=== PATIENT | female | born 1955 | race Caucasian/White ===

== ENCOUNTER → 2017-02-21 | Outpatient (CLI) | payer OTHER | LOC: FIMAGING 14:45 | DX: Z12.31 Encounter for screening mammogram for malignant neoplasm of breast (principal) | CPT/HCPCS: G0202 ==

== ENCOUNTER 2018-02-13 09:31 | Emergency (ER) | payer OTHER ==
[2018-02-13 09:35] VITALS: BP 147/74
[2018-02-13] MEDS ORDERED: SULFAMETHOX/TMP 800/160 MG 1 TAB PO ONE (09:58)
[2018-02-13] MEDS ORDERED: CEPHALEXIN 500 MG CAP PO ONE (09:58)
--- NOTE | 2018-02-13 09:58 | EDPHY ---
General Time Seen by Provider: 02/13/18 09:44 Narrative: CHIEF COMPLAINT: Right hand laceration, possible infection HISTORY OF PRESENT ILLNESS: Patient complains of superficial laceration to the dorsum of the right hand. This happen yesterday while at work here at [facility]. 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 She is not entirely sure what she scraped it on. She noticed a later. She irrigated it and treated with bacitracin. She is now concerned that has become infected. She performed her own wound culture this morning. She has complaints localized to the area of injury. No chest pain, shortness of breath, fever, feeling of systemic illness. Pain is minimal. She is able to fully use that hand without difficulty. Tetanus up-to-date less than 2 years ago. No other associated complaints or modifying factors. TIME OF INJURY: Yesterday afternoon TETANUS STATUS: Last year MEDICAL/SURGICAL/SOCIAL HISTORY: Uncomplicated medical history. Works here in the microbiology lab REVIEW OF SYSTEMS: Ten systems reviewed and are negative unless otherwise noted in the HPI EXAMINATION General Appearance: Alert, no distress Head: normocephalic, atraumatic Cardiovascular: Symmetric radial pulses with brisk cap refill in the right hand. Neurological: A&O, sensory symmetric, strength symmetric Skin: Warm and dry, no rash. There is superficial laceration that measures 2 cm over the dorsum of the right hand overlying the 5th metacarpal. There is minimal surrounding erythema. No crepitus. No fluctuance. No necrosis. Extremities: Minimal tenderness of the right hand over the dorsal aspect near the laceration. Range of motion is fully intact. No signs of septic joint, abscess or cellulitis. DIFFERENTIAL DIAGNOSES: Including but not limited to superficial laceration, laceration infection, tenosynovitis, cellulitis, abscess MDM: 9:50 a.m. Acute laceration to the dorsum of the right hand that occurred yesterday. There is no need for suture repair as this is very superficial. There is mild redness surrounding this. She has concern for the possibility of infection as she does work in the microbiology lab. Her tetanus is up-to-date. We will irrigate the wound. I will start her on empiric coverage for staph and strep. She performed her own wound culture in the laboratory this morning. She is comfortable with this plan and will follow up on the swallow accordingly. She will follow up with employee health for remaining care. There is no sign of tenosynovitis, abscess, cellulitis or fracture. She has no pain in this area. Her vital signs are within normal limits. SUPERVISION: This patient was independently evaluated without direct involvement of or examination by the attending physician. ED Precautions: Worsening pain. Erythema, edema, cyanosis, pallor, paresthesia or anesthesia. - History Smoking Status: Former smoker - Objective Vital Signs: Initial Vital Signs Temperature (C) 97.7 F 02/13/18 09:33 Heart Rate 82 02/13/18 09:33 Respiratory Rate 16 02/13/18 09:33 Blood Pressure 147/74 H 02/13/18 09:33 O2 Sat (%) 97 02/13/18 09:33 O2 Delivery Mode Room Air Allergies/Adverse Reactions: erythromycin base [Erythromycin Base] Allergy (Intermediate, Verified 05/12/13 12:15) STOMACH ACHE CATS Allergy (Intermediate, Uncoded 05/12/13 12:15) STUFFY NOSE/EYE SWELLING DUST Allergy (Intermediate, Uncoded 05/12/13 12:15) STUFFY NOSE/EYE SWELLING Home Medications: Medication Instructions Recorded Cephalexin [Keflex (*)] 500 mg PO QID #40 cap 02/13/18 Sulfamethox/Tmp 800/160 mg 1 tab PO BID 10 Days tab 02/13/18 [Bactrim Ds] Medications Given: Discontinued Medications Cephalexin HCl (Keflex) 500 mg PO EDNOW ONE PRN Reason: Protocol Stop: 02/13/18 09:59 Last Admin: 02/13/18 10:08 Dose: 500 mg Trimethoprim/Sulfamethoxazole (Bactrim Ds) 1 ea PO EDNOW ONE PRN Reason: Protocol Stop: 02/13/18 09:59 Last Admin: 02/13/18 10:08 Dose: 1 ea Departure - Departure Disposition: Home, Routine, Self-Care Clinical Impression: Laceration of hand with complication Qualifiers: Encounter type: initial encounter Laterality: right Qualified Code(s): S61.411A - Laceration without foreign body of right hand, initial encounter Laceration of right hand with delay in treatment Qualifiers: Encounter type: initial encounter Qualified Code(s): S61.411A - Laceration without foreign body of right hand, initial encounter Condition: Good Instructions: Cephalexin (By mouth), Sulfamethoxazole/Trimethoprim (By mouth), Laceration (ED), Wound Infection (ED) Additional Instructions: 1. Bactrim as prescribed twice daily for 10 days pending the wound culture 2. Keflex as prescribed 4 times daily for 10 days pending wound culture 3. Follow up with employee health 4. ED precautions as discussed Referrals: Physician,Emergency Dept, [Medical Doctor] - As per Instructions Stand Alone Forms: Work Comp Follow Up Prescriptions: Cephalexin [Keflex (*)] 500 mg PO QID #40 cap Sulfamethox/Tmp 800/160 mg [Bactrim Ds] 1 tab PO BID 10 Days tab
== END 2018-02-13 10:15 | disposition home or self-care (01) ==
DX: S61.411A Laceration without foreign body of right hand, initial encounter (principal); Z87.891 Personal history of nicotine dependence; X58.XXXA Exposure to other specified factors, initial encounter; Y92.59 Other trade areas as the place of occurrence of the external cause; Y99.0 Civilian activity done for income or pay; Y93.89 Activity, other specified

== ENCOUNTER → 2018-02-27 | Outpatient (CLI) | payer OTHER | LOC: FIMAGING 14:49 | PROVIDERS: ATTEND Internal Medicine | DX: Z12.31 Encounter for screening mammogram for malignant neoplasm of breast (principal) ==

== ENCOUNTER → 2019-04-19 | Outpatient (CLI) | payer OTHER | LOC: FIMAGING 14:46 ==